=== PATIENT | female | born 1995 | race American Indian/Alaskan Native ===

== ENCOUNTER 2021-07-06 19:52 | Emergency (ER) | payer MEDICAID ==
--- NOTE | 2021-07-06 23:26 | XRay Report ---
CHEST 2 VIEWS INDICATION / CLINICAL INFORMATION: Mid back pain. COMPARISON: None available. FINDINGS: SUPPORT DEVICES: None. HEART / MEDIASTINUM: No significant abnormality. LUNGS / PLEURA: 2 calcified granulomas are seen along the right middle lobe inferiorly. The lungs are otherwise clear. No significant pleural effusion. No pneumothorax. ADDITIONAL FINDINGS: No significant additional findings. IMPRESSION: 1. No acute abnormality of the chest. Signer Name: Rom Valles MD Signed: 07/06/2021 11:22 PM Workstation Name: [id number]
--- NOTE | 2021-07-06 23:55 | Emergency Department Report ---
ED Back Pain/Injury HPI - General Chief Complaint: Chest Pain Stated Complaint: UPPER BACK & CHEST PAIN Source: patient Limitations: No Limitations - History of Present Illness Initial Comments: Patient is a 25-year-old -[place] female with no past medical history presents to the ED with complaint of acute onset persistent mid posterior thoracic pain that radiates to the anterior right chest wall intermittently, worse with movement or deep inhalation for the last 12 hours. Patient states that she took Tylenol about 8 hours ago with no relief. Patient denies fall, traumatic injury, cough, sore throat, nasal and sinus congestion, shortness of breath, wheezing, traumatic injury, heavy lifting, nausea and vomiting, fever, chills, numbness and tingling or weakness of upper and lower extremities bilaterally or neck pain and headache. MD Complaint: back pain (Mid posterior thoracic pain radiating to the right side of the chest) -: Sudden, hour(s) (12) Similar Symptoms Previously: No Place: home Radiation: none Severity: moderate Severity scale (0 -10): 5 Quality: sharp, aching Consistency: intermittent Improves With: other (Rest) Worsens With: movement, other (Inhalation) Associated Symptoms: denies other symptoms, chest pain (Right-sided chest wall pain). denies: confusion, numbness, difficulty walking, cough, difficulty urinating, diaphoresis, fever/chills, constipation, headaches, abdominal pain, nausea/vomiting, seizure, shortness of breath Treatments Prior to Arrival: acetaminophen - Related Data Previous Rx's Medication Instructions Recorded Last Taken Type Baclofen 20 mg PO Q12H PRN #20 tab 07/07/21 Unknown Rx Naproxen 500 mg PO Q12H PRN #30 tab 07/07/21 Unknown Rx Allergies Allergy/AdvReac Type Severity Reaction Status Date / Time No Known Allergies Allergy Unverified 07/06/21 21:27 ED Review of Systems ROS: Stated complaint: UPPER BACK & CHEST PAIN Other details as noted in HPI Constitutional: denies: chills, fever Eyes: denies: eye pain, eye discharge, vision change ENT: denies: ear pain, throat pain Respiratory: denies: cough, shortness of breath, wheezing Cardiovascular: chest pain (Right-sided chest wall pain). denies: palpitations Endocrine: no symptoms reported Gastrointestinal: denies: abdominal pain, nausea, vomiting, diarrhea Genitourinary: denies: urgency, dysuria, discharge Musculoskeletal: back pain (Mid posterior thoracic pain). denies: joint swelling, arthralgia Skin: denies: rash, lesions Neurological: denies: headache, weakness, paresthesias Psychiatric: denies: anxiety, depression Hematological/Lymphatic: denies: easy bleeding, easy bruising ED Past Medical Hx - Social History Smoking Status: Current Every Day Smoker Substance Use Type: Marijuana - Medications Home Medications: Home Medications Medication Instructions Recorded Confirmed Last Taken Type Baclofen 20 mg PO Q12H PRN #20 tab 07/07/21 Unknown Rx Naproxen 500 mg PO Q12H PRN #30 tab 07/07/21 Unknown Rx ED Physical Exam - General Limitations: No Limitations General appearance: alert, in no apparent distress - Head Head exam: Present: atraumatic, normocephalic, normal inspection - Eye Eye exam: Present: normal appearance, PERRL, EOMI Pupils: Present: normal accommodation - ENT ENT exam: Present: normal exam, normal orophraynx, mucous membranes moist, TM's normal bilaterally, normal external ear exam - Neck Neck exam: Present: normal inspection, full ROM. Absent: tenderness - Respiratory Respiratory exam: Present: normal lung sounds bilaterally, chest wall tenderness (Palpable reproducible anterior chest wall and mid posterior thoracic paraspinal musculoskeletal tenderness). Absent: respiratory distress, wheezes, rales, rhonchi, prolonged expiratory - Cardiovascular Cardiovascular Exam: Present: regular rate, normal rhythm, normal heart sounds. Absent: systolic murmur, diastolic murmur, rubs, gallop - GI/Abdominal GI/Abdominal exam: Present: soft, normal bowel sounds. Absent: tenderness, guarding, rebound, hyperactive bowel sounds, hypoactive bowel sounds, organomegaly - Extremities Exam Extremities exam: Present: normal inspection, full ROM, normal capillary refill. Absent: tenderness, pedal edema, joint swelling, calf tenderness - Back Exam Back exam: Present: normal inspection, full ROM. Absent: tenderness, CVA tenderness (R), CVA tenderness (L), muscle spasm, paraspinal tenderness, vertebral tenderness - Neurological Exam Neurological exam: Present: alert, oriented X3, CN II-XII intact, normal gait, reflexes normal - Psychiatric Psychiatric exam: Present: normal affect, normal mood - Skin Skin exam: Present: warm, dry, intact, normal color. Absent: rash ED Course Vital Signs 07/06/21 21:25 Temperature 98.4 F Pulse Rate 75 Respiratory 16 Rate Blood Pressure 129/74 O2 Sat by Pulse 100 Oximetry ED Medical Decision Making - Radiology Data Radiology results: report reviewed, image reviewed [facility] [address] [place] [address] XRay Report Signed Patient: VERONA DOUGLAS MR#: [id number] : 1995 Acct:[id number] Age/Sex: 25 / F ADM Date: 07/06/21 Loc: ED Attending Dr: Ordering Physician: MORGAN MCCONNELL Date of Service: 07/06/21 Procedure(s): XR chest routine 2V Accession Number(s): [id number] cc: MORGAN MCCONNELL Fluoro Time In Minutes: CHEST 2 VIEWS INDICATION / CLINICAL INFORMATION: Mid back pain. COMPARISON: None available. FINDINGS: SUPPORT DEVICES: None. HEART / MEDIASTINUM: No significant abnormality. LUNGS / PLEURA: 2 calcified granulomas are seen along the right middle lobe inferiorly. The lungs are otherwise clear. No significant pleural effusion. No pneumothorax. ADDITIONAL FINDINGS: No significant additional findings. IMPRESSION: 1. No acute abnormality of the chest. Signer Name: Rom Valles MD Signed: 07/06/2021 11:22 PM Workstation Name: [id number] Transcribed By: TRIXIE Dictated By: Rom Valles MD Electronically Authenticated By: Rom Valles MD Signed Date/Time: 07/06/212321 DD/ 20 TD/TT: - Medical Decision Making This is a 25-year-old -[place] female with no past medical history presents to the ED with complaint of acute onset persistent mid posterior thoracic pain that radiates to the anterior right chest wall intermittently, worse with movement or deep inhalation for the last 12 hours. Patient states that she took Tylenol about 8 hours ago with no relief. In the ED, patient is alert and oriented x3 and is not in any distress. Patient is hemodynamically stable. Patient has score is 0. Patient is PERC negative per Wells criteria. Chest x-ray showed no acute cardiopulmonary abnormalities or pneumonitis. Patient was treated for pain in the ED and on reevaluation, patient felt better and was discharged home on medications. Patient symptoms are likely due to muscle strain or muscle spasm or costochondritis. Patient was advised to follow-up with her primary care physician in 7 to 10 days for reevaluation or return to the ED immediately if symptoms get worse. - Differential Diagnosis Muscle strain; muscle spasm; costochondritis; Critical care attestation.: If time is entered above; I have spent that time in minutes in the direct care of this critically ill patient, excluding procedure time. ED Disposition Clinical Impression: Muscle strain of anterior chest wall, Acute costochondritis, Spasm of thoracic back muscle Disposition: HOME / SELF CARE / HOMELESS Is pt being admited?: No Does the pt Need Aspirin: No Condition: Stable Instructions: Muscle Cramps and Spasms, [id number], Costochondritis, [id number], Muscle Strain, [id number] Additional Instructions: Chest x-ray showed no acute cardiopulmonary abnormalities or pneumonitis. Your symptoms are likely musculoskeletal, therefore take medications with food, drink plenty of fluids and follow-up with your primary care physician in 7 to 10 days for reevaluation. Return to the ED immediately if symptoms get worse. Prescriptions: Baclofen 20 mg PO Q12H PRN #20 tab PRN Reason: Muscle Spasm Naproxen 500 mg PO Q12H PRN #30 tab PRN Reason: Pain , Severe (7-10) Referrals: [facility] [place] [Provider Group] - 7-10 days Time of Disposition: 00:08 Print Language: BULGARIAN
[2021-07-07 01:54] VITALS: BP 117/72
== END 2021-07-07 01:54 | disposition home or self-care (01) ==
LOC: ED 19:52
DX: S29.011A Strain of muscle and tendon of front wall of thorax, initial encounter (principal); M94.0 Chondrocostal junction syndrome [Tietze]; M62.830 Muscle spasm of back; M54.6 Pain in thoracic spine; F17.200 Nicotine dependence, unspecified, uncomplicated; F12.90 Cannabis use, unspecified, uncomplicated; Z88.8 Allergy status to other drugs, medicaments and biological substances; Z79.899 Other long term (current) drug therapy; X58.XXXA Exposure to other specified factors, initial encounter; Y93.89 Activity, other specified; Y92.89 Other specified places as the place of occurrence of the external cause; Y99.8 Other external cause status
CPT/HCPCS: 71046; 99283

== ENCOUNTER 2021-09-22 00:30 | Emergency (ER) | payer MEDICAID ==
[2021-09-22 02:57] VITALS: BP 131/76
== END 2021-09-23 08:32 | disposition left against medical advice (07) ==
LOC: ED 00:30
DX: T14.8XXA Other injury of unspecified body region, initial encounter (principal); Z53.21 Procedure and treatment not carried out due to patient leaving prior to being seen by health care provider; W57.XXXA Bitten or stung by nonvenomous insect and other nonvenomous arthropods, initial encounter; Y93.89 Activity, other specified; Y92.89 Other specified places as the place of occurrence of the external cause; Y99.8 Other external cause status